=== PATIENT | male | born 1955 | race Caucasian/White ===

== ENCOUNTER 2022-09-14 11:10 | Outpatient (REF) | payer MEDICARE, SELFPAY ==
--- NOTE | ~2022-09-14 | XR_ITS ---
EXAMINATION: XR CHEST CLINICAL INFORMATION: Cough COMPARISON: None TECHNIQUE: 2 views of the chest were obtained. FINDINGS: Findings suggest old rib fractures on the left. There is no convincing evidence for an infiltrate here. Lung rodriguez are grossly clear. The cardiac silhouette is not felt to be enlarged. Hilar regions do not appear pathologically enlarged. There is no effusion. XR/XR chest 2V IMPRESSION: No convincing evidence for an acute process.
== END 2022-09-14 11:11 | disposition home or self-care (01) ==
LOC: HO.HMGCX 11:10
PROVIDERS: Visit Provider Physician Assistant
DX: R05.9 Cough, unspecified (principal)
CPT/HCPCS: 71046